=== PATIENT | female | born 1940 | race Caucasian/White ===

== ENCOUNTER 2019-11-22 07:30 | Outpatient (REF) | payer MEDICARE, SELFPAY ==
[2019-11-22 07:52] LABS: Hematocrit 22.5 % (37-47); Hemoglobin 7.3 g/dl (12.0-16.0); Mean Corpuscular HGB Conc 32.4 g/dl (31.0-35.0); Mean Corpuscular Hemoglobin 30.4 pg (27.0-33.0); Mean Corpuscular Volume 93.8 fL (80-98); Mean Platelet Volume 10.5 fL (9.4-12.3); Platelet Count 270 X10*3/uL (160-400); White Blood Count 12.7 X10*3/uL (4.8-10.8)
[2019-11-22 08:22] LABS: Alanine Aminotransferase 9 U/L (0-31); Albumin Level 2.8 g/dL (3.5-5.0); Alkaline Phosphatase 129 U/L (39-117); Anion Gap 14 (12-20); Aspartate Amino Transferase 13 U/L (5-31); Bilirubin Total 0.4 mg/dL (0.0-1.0); Blood Urea Nitrogen 55 mg/dL (9-16); Calcium 7.3 mg/dL (8.4-10.2); Carbon Dioxide 29 mmol/L (22-29); Chloride 92 mmol/L (96-108); Estimated Glomerular Filt Rate 16; Glucose Random 226 mg/dL (60-115); Potassium 4.7 mmol/l (3.3-5.1); Sodium 130 mmol/L (135-145); Total Protein 4.9 g/dL (6.5-8.0)
== END 2019-11-22 07:31 | disposition home or self-care (01) ==
LOC: HO.MMNH1L 07:30
PROVIDERS: Visit Provider Family Medicine
DX: E11.22 Type 2 diabetes mellitus with diabetic chronic kidney disease (principal); N18.9 Chronic kidney disease, unspecified
CPT/HCPCS: 36415; 80053; 85027

== ENCOUNTER 2019-12-02 19:20 | Outpatient (REF) | payer MEDICARE, SELFPAY | END 2019-12-02 19:21 | disposition home or self-care (01) | LOC: HO.LNP 19:20 | PROVIDERS: Visit Provider Family Medicine | DX: Z20.828 Contact with and (suspected) exposure to other viral communicable diseases (principal) | CPT/HCPCS: 87635 ==

== ENCOUNTER 2019-12-05 | Outpatient (REF) | payer MEDICARE, SELFPAY ==
[2019-12-05 05:57] LABS: Hematocrit 28.4 % (37-47); Hemoglobin 8.8 g/dl (12.0-16.0); Mean Corpuscular Hemoglobin 29.4 pg (27.0-33.0); Mean Platelet Volume 9.8 fL (9.4-12.3); Platelet Count 290 X10*3/uL (160-400); Red Blood Count 2.99 X10*6/uL (4.20-5.50); Red Cell Distribution Width 17.2 % (11.0-16.0); White Blood Count 10.9 X10*3/uL (4.8-10.8)
[2019-12-05 06:19] LABS: Anion Gap 13 (12-20); Blood Urea Nitrogen 27 mg/dL (9-16); Calcium 7.6 mg/dL (8.4-10.2); Carbon Dioxide 29 mmol/L (22-29); Chloride 102 mmol/L (96-108); Estimated Glomerular Filt Rate 20; Glucose Random 107 mg/dL (60-115); Potassium 3.3 mmol/l (3.3-5.1); Sodium 141 mmol/L (135-145)
== END 2019-12-05 00:01 | disposition home or self-care (01) ==
LOC: HO.MMNH1L
PROVIDERS: Visit Provider Family Medicine
DX: E11.22 Type 2 diabetes mellitus with diabetic chronic kidney disease (principal); N18.9 Chronic kidney disease, unspecified
CPT/HCPCS: 36415; 80048; 85027

== ENCOUNTER 2019-12-12 07:25 | Outpatient (REF) | payer MEDICARE, SELFPAY ==
[2019-12-12 08:45] LABS: Hematocrit 25.1 % (37-47); Hemoglobin 7.8 g/dl (12.0-16.0); Mean Corpuscular HGB Conc 31.1 g/dl (31.0-35.0); Mean Corpuscular Hemoglobin 29.5 pg (27.0-33.0); Mean Corpuscular Volume 95.1 fL (80-98); Mean Platelet Volume 10.8 fL (9.4-12.3); Platelet Count 252 X10*3/uL (160-400); Red Blood Count 2.64 X10*6/uL (4.20-5.50); Red Cell Distribution Width 17.2 % (11.0-16.0); White Blood Count 23.8 X10*3/uL (4.8-10.8)
[2019-12-12 09:58] LABS: Anion Gap 15 (12-20); Blood Urea Nitrogen 43 mg/dL (9-16); Calcium 7.3 mg/dL (8.4-10.2); Carbon Dioxide 29 mmol/L (22-29); Chloride 95 mmol/L (96-108); Estimated Glomerular Filt Rate 18; Glucose Random 300 mg/dL (60-115); Potassium 3.6 mmol/l (3.3-5.1); Sodium 135 mmol/L (135-145)
== END 2019-12-12 07:26 | disposition home or self-care (01) ==
LOC: HO.MMNH1L 07:25
PROVIDERS: Internal Medicine; Visit Provider Family Medicine
DX: Z20.828 Contact with and (suspected) exposure to other viral communicable diseases (principal); N18.9 Chronic kidney disease, unspecified; E11.9 Type 2 diabetes mellitus without complications
CPT/HCPCS: 36415; 80048; 85027; 87635

== ENCOUNTER 2019-12-14 06:58 | Outpatient (REF) | payer MEDICARE, SELFPAY ==
[2019-12-14 08:06] LABS: Glucose Urine UA NEG (NEG); Leukocyte Esterase Urine 2+ (NEG); Nitrite Urine NEG (NEG); Urine Blood 1+ (NEG); Urine Ketones NEG (NEG); Urine Protein 2+ MG/DL (NEG-TRACE)
[2019-12-14 08:07] LABS: Appearance Urine CLOUDY; Color Urine YELLOW
[2019-12-14 08:28] LABS: Bacteria Urine 1+ /LPF; Squamous Epithelial Cell Urine 1+ /LPF; WBC Urine TNTC /HPF (0-4)
== END 2019-12-14 06:59 | disposition home or self-care (01) ==
LOC: HO.MMNH2L 06:58
PROVIDERS: Visit Provider Family Medicine
DX: M54.5 Low back pain (principal)
CPT/HCPCS: 81001; 81003; 87086; 87088

== ENCOUNTER 2019-12-19 | Outpatient (REF) | payer MEDICARE, SELFPAY ==
[2019-12-19 07:11] LABS: Hematocrit 24.3 % (37-47); Hemoglobin 7.6 g/dl (12.0-16.0); Mean Corpuscular HGB Conc 31.3 g/dl (31.0-35.0); Mean Corpuscular Hemoglobin 29.2 pg (27.0-33.0); Mean Corpuscular Volume 93.5 fL (80-98); Mean Platelet Volume 10.3 fL (9.4-12.3); Platelet Count 341 X10*3/uL (160-400); Red Cell Distribution Width 17.5 % (11.0-16.0); White Blood Count 13.5 X10*3/uL (4.8-10.8)
[2019-12-19 07:48] LABS: Anion Gap 17 (12-20); Blood Urea Nitrogen 39 mg/dL (9-16); Calcium 7.2 mg/dL (8.4-10.2); Carbon Dioxide 27 mmol/L (22-29); Chloride 95 mmol/L (96-108); Estimated Glomerular Filt Rate 14; Glucose Random 359 mg/dL (60-115); Sodium 135 mmol/L (135-145)
== END 2019-12-19 00:01 | disposition home or self-care (01) ==
LOC: HO.MMNH1L
PROVIDERS: Visit Provider Family Medicine
DX: Z20.828 Contact with and (suspected) exposure to other viral communicable diseases (principal); E11.22 Type 2 diabetes mellitus with diabetic chronic kidney disease; N18.9 Chronic kidney disease, unspecified
CPT/HCPCS: 36415; 80048; 85027; U0003

== ENCOUNTER 2019-12-20 13:02 | Outpatient (REF) | payer MEDICARE, SELFPAY ==
[2019-12-20 13:50] LABS: Blood Urea Nitrogen 54 mg/dL (9-16); Estimated Glomerular Filt Rate 10
[2019-12-20 14:55] LABS: Creatinine (CrCl) 4.17 mg/dL (0.5-1.4); Total Volume 24 Hour Urine 250 mL
[2019-12-20 15:15] LABS: Creatinine Clearance 2.7 mL/min (85-125); Creatinine, 24Hr Urine 0.2 G/Day (1.0-2.0); Creatinine, mg/dL 67.23
[2019-12-21 18:17] LABS: Urea, 24 Hr Urine 0 g/24 h (6-17)
== END 2019-12-20 13:03 | disposition home or self-care (01) ==
LOC: HO.MMNH2L 13:02
PROVIDERS: Visit Provider Family Medicine
DX: R94.4 Abnormal results of kidney function studies (principal); N18.6 End stage renal disease; Z99.2 Dependence on renal dialysis
CPT/HCPCS: 82565; 82570; 82575; 84520; 84540

== ENCOUNTER 2019-12-26 | Outpatient (REF) | payer MEDICARE, SELFPAY ==
[2019-12-26 06:39] LABS: Hematocrit 24.2 % (37-47); Hemoglobin 7.5 g/dl (12.0-16.0); Mean Corpuscular Hemoglobin 29.2 pg (27.0-33.0); Mean Corpuscular Volume 94.2 fL (80-98); Mean Platelet Volume 10.5 fL (9.4-12.3); Platelet Count 404 X10*3/uL (160-400); Red Blood Count 2.57 X10*6/uL (4.20-5.50); Red Cell Distribution Width 17.9 % (11.0-16.0); White Blood Count 14.4 X10*3/uL (4.8-10.8)
[2019-12-26 07:03] LABS: Anion Gap 15 (12-20); Blood Urea Nitrogen 32 mg/dL (9-16); Calcium 7.2 mg/dL (8.4-10.2); Carbon Dioxide 28 mmol/L (22-29); Chloride 94 mmol/L (96-108); Estimated Glomerular Filt Rate 15; Glucose Random 183 mg/dL (60-115); Potassium 3.9 mmol/l (3.3-5.1); Sodium 133 mmol/L (135-145)
== END 2019-12-26 00:01 | disposition home or self-care (01) ==
LOC: HO.MMNH2L
PROVIDERS: Visit Provider Family Medicine
DX: E11.22 Type 2 diabetes mellitus with diabetic chronic kidney disease (principal); N18.9 Chronic kidney disease, unspecified
CPT/HCPCS: 36415; 80048; 85027